=== PATIENT | female | born 1970 | race Caucasian/White ===

== ENCOUNTER 2021-04-25 08:39 | Day surgery (SDC) | payer BC ==
[~2021-04-25] VITALS: Ht 157.5 cm; Wt 73.4 kg
[~2021-04-25 08:39] MED LIST: HYDROmorphone 2 MG/ML VIAL IVP PRN; IV RINGERS,LACTATED 1000ML 1,000 ML IV SCH; MORPHINE SULFATE 2 MG/ML INJ. IVP PRN; PROCHLORPERAZINE 10 MG/2 ML VIAL. IVP PRN; ceFAZolin SODIUM IV Push 1 GM VIAL. IVP PRN; fentaNYL PF VIAL 100 MCG/2 ML VIAL IVP PRN
[2021-04-25] MEDS ORDERED: LIDOCAINE 2% PF 5 ML VIAL. ONE (09:06)
[2021-04-25] MEDS ORDERED: MIDAZOLAM HCL/PF 2 MG/2 ML VIAL. ONE (09:06)
[2021-04-25] MEDS ORDERED: PROPOFOL 10 MG/ML (20ML) VIAL. IV ONE (09:06)
[2021-04-25] MEDS ORDERED: fentaNYL PF VIAL 100 MCG/2 ML VIAL ONE (09:06)
[2021-04-25 09:25] VITALS: BP 168/88
[2021-04-25] MEDS ORDERED: FERRIC SUBSULFATE 8 ML SOL.W.APPL TP ONE (09:40)
[2021-04-25] MEDS ORDERED: LIDOCAINE 1%/EPI 1:100,000 20 ML VIAL. ONE (09:40)
[2021-04-25] MEDS ORDERED: KETOROLAC 30 MG/ML VIAL. ONE (10:07)
[2021-04-25] MEDS ORDERED: ONDANSETRON PF 4 MG/2 ML VIAL. ONE (10:07)
[2021-04-25] MEDS ORDERED: DEXAMETHASONE SOD PHOS 4 MG/ML VIAL ONE (10:07)
[2021-04-25] MEDS ORDERED: SEVOFLURANE 31 TO 60 MINUTES. IH ONE (10:14)
--- NOTE | 2021-04-25 10:28 | PDOC ---
BRIEF OPERATIVE NOTE Date: Apr 25, 2021 Pre-Op Diagnosis BENITO 2 Post-Op Diagnosis Same Procedure Performed Cold Knife Cervical Cone Biopsy Surgeon Dr. Luna Anesthesia Type: General Blood Loss 5 ml Specimens Obtained anterior and posterior lip of cervix Findings cervical dysplasia Complications none Operative Note see dictation BRYCE LUNA Jr, MD Apr 25, 2021 10:28
[2021-04-25] MEDS ORDERED: OXYC1TAB15 PO (10:29)
--- NOTE | 2021-04-25 10:30 | DISCH ---
DISCHARGE INSTRUCTIONS Condition on Discharge Condition on Discharge: Stable Activity After Discharge Activity Instructions for Disc: Activity as tolerated Lifting Instructions after Dis: No heavy lifting Driving Instructions after Dis: Do not drive today Diet after Discharge Diet after Discharge: Regular Contacting the [facility] after DC Call your doctor for: Concerns you may have Follow-Up Follow up with: Dr. Luna in 1 week BYRCE LUNA Jr, MD Apr 25, 2021 10:30
[2021-04-25 10:46] VITALS: BP 129/88
--- NOTE | 2021-04-25 10:55 | OP ---
DATE OF SURGERY: 04/25/2021 PREOPERATIVE DIAGNOSIS: Cervical intraepithelial neoplasia 2. POSTOPERATIVE DIAGNOSIS: Cervical intraepithelial neoplasia 2. PROCEDURE: Cold knife cervical cone biopsy. SURGEON: Dr. Luna. ANESTHESIA: GETA. ESTIMATED BLOOD LOSS: 5 mL. COMPLICATIONS: None. FINDINGS: Cervical dysplasia. SUMMARY: A 50-year-old with BENITO-2 on colposcopic biopsy requiring cervical cone biopsy. She was counseled on the risks, benefits and expectations and voiced clear understanding to proceed. DESCRIPTION OF PROCEDURE: The patient was taken to surgery suite and placed in dorsal lithotomy position, was prepped with Betadine solution and draped in sterile fashion. After adequate anesthesia, weighted speculum and right angle were placed. Anterior lip of cervix grasped with single tooth tenaculum. Cervix was injected with 1% lidocaine with epinephrine in a circumferential manner, 2-0 Vicryl sutures placed at 3 o'clock and 9 o'clock positions for stabilization of the cervix. A 45-degree angled scalpel was utilized to remove the anterior and posterior lip of the cervix in a cone shape formation. Bovie cautery was utilized to cauterize the remaining cervix. Monsel's was placed for better hemostasis. The single tooth tenaculum and weighted speculum were removed. The patient tolerated the procedure well and was taken to recovery room in stable condition. Sponge and needle counts were correct x 3. RITA/FABIO DR: Ana Maria TID: [id number]
[2021-04-25] MEDS ORDERED: HYDROcodone/APAP 5/325MG 1 TAB TABLET PO ONE (11:00)
== END 2021-04-25 11:13 | disposition home or self-care (01) ==
LOC: SURG 08:39
PROVIDERS: ATTEND Obstetrics & Gynecology
DX: N87.1 Moderate cervical dysplasia (principal); N87.9 Dysplasia of cervix uteri, unspecified; Z79.899 Other long term (current) drug therapy; Z98.890 Other specified postprocedural states; Z88.0 Allergy status to penicillin
CPT/HCPCS: 57520; 81025; J0690; J1100; J1885; J2405; J2704; J3010; J3490; A4930; J2250